=== PATIENT | female | born 1975 | race Caucasian/White ===

== ENCOUNTER 2024-12-15 11:40 | Emergency (ER) | payer OTHER ==
[~2024-12-15] VITALS: Ht 167.6 cm; Wt 87.5 kg
[2024-12-15 12:25] VITALS: BP 104/74; TEMP 98.3
[2024-12-15] MEDS ORDERED: ATOR40TA PO (12:50)
[2024-12-15] MEDS ORDERED: EMPA10TA PO (12:50)
[2024-12-15] MEDS ORDERED: EZET10TA32 PO (12:50)
[2024-12-15] MEDS ORDERED: METF-442 PO (12:50)
[2024-12-15] MEDS ORDERED: DULA1.5P SQ (12:50)
[2024-12-15 12:59] VITALS: O2SAT 0
== END 2024-12-15 13:01 | disposition home or self-care (01) ==
LOC: ER 11:40
DX: E11.10 Type 2 diabetes mellitus with ketoacidosis without coma (principal); E78.00 Pure hypercholesterolemia, unspecified; Z76.0 Encounter for issue of repeat prescription; Z79.84 Long term (current) use of oral hypoglycemic drugs; Z79.899 Other long term (current) drug therapy; Z88.0 Allergy status to penicillin
CPT/HCPCS: 82962-TC